=== PATIENT | male | born 1950 | race Caucasian/White ===

== ENCOUNTER → 2016-10-20 | Outpatient (CLI) | payer OTHER, MEDICARE | LOC: BHLMT 14:45 | PROVIDERS: ATTEND Internal Medicine Cardiovascular Disease | DX: I48.91 Unspecified atrial fibrillation (principal) | CPT/HCPCS: 93306-PO ==

== ENCOUNTER → 2016-10-26 | Outpatient (CLI) | payer OTHER, MEDICARE | LOC: BHLMT 14:00 | PROVIDERS: ATTEND Internal Medicine Cardiovascular Disease | DX: R06.02 Shortness of breath (principal) | CPT/HCPCS: 78452; 93017; A9500; J2785 ==

== ENCOUNTER → 2016-10-27 | Outpatient (CLI) | payer OTHER, MEDICARE ==
[~2016-10-27] MED LIST: IOPAMIDOL (ISOVUE 370) 100 ML BTL IV ONE
== END ==
LOC: FIMAGING 14:42
PROVIDERS: ATTEND Internal Medicine
DX: I72.9 Aneurysm of unspecified site (principal); I71.01 Dissection of thoracic aorta
CPT/HCPCS: 71275; 74175; Q9967

== ENCOUNTER → 2016-10-28 | Outpatient (CLI) | payer OTHER, MEDICARE | LOC: FIMAGING 17:01 | PROVIDERS: ATTEND Internal Medicine | DX: I71.4 Abdominal aortic aneurysm, without rupture (principal); Z98.890 Other specified postprocedural states ==

== ENCOUNTER 2016-11-27 18:48 | Inpatient (IN) | payer OTHER, MEDICARE ==
--- NOTE | 2016-11-27 18:58 | CPEKG ---
Heart Rate: 93 RR Interval: 645 QRSD Interval: 102 QT Interval: 368 QTC Interval: 458 QRS [place]: 90 T Wave [place]: -36 EKG Severity - ABNORMAL ECG - EKG Impression: ATRIAL FIBRILLATION, V-RATE 77-110 EKG Impression: BORDERLINE RIGHT AXIS DEVIATION Electronically Signed By: Trey Badillo 27-Nov-2016 20:11:23
[2016-11-27] MEDS ORDERED: ALBUTEROL 3 ML DEYVIAL IH ONE ×2 (19:22→20:13)
[2016-11-27] MEDS ORDERED: IPRATROPIUM/ALBUTEROL 3 ML DEYVIAL ONE (19:22)
[2016-11-27] MEDS ORDERED: methylPREDNISolone SOD SUCC 125 MG/2 ML VIAL IVP ONE (19:22)
[2016-11-27] MEDS ORDERED: NS 1,000 ML IV ONE (19:22)
[2016-11-27] MEDS ORDERED: IPRATROPIUM/ALBUTEROL 3 ML DEYVIAL IH ONE (19:22)
[2016-11-27] MEDS ORDERED: MAGNESIUM SULF 2 GM/WATER 50 ML IV ONE (19:22)
--- NOTE | 2016-11-27 19:25 | EDPHY ---
H & P Time Seen by Provider: 11/27/16 19:13 HPI/ROS: CHIEF COMPLAINT: The short of breath and trouble breathing HISTORY OF PRESENT ILLNESS: 66-year-old man has had asthma for 30 or 35 years. He ran out of his Flovent 2 days ago and developed a cold a cough productive of thick yellow sputum. Presents with worsening shortness of breath identical to multiple previous episodes of asthma is worse with any exertion. Better sitting up. Worse lying down. Not associated with chest pain or fever. No hemoptysis or leg swelling. Symptoms severe. REVIEW OF SYSTEMS: Eye: no change in vision ENT: no sore throat Cardiac: no chest pain or syncope Pulmonary: HPI Abdomen: no vomiting, diarrhea, abdominal pain Musculoskeletal: no back pain Skin: no rash Neuro: no headache Constitutional: no fever : no urinary symptoms A comprehensive 10 point review of systems is otherwise negative aside from elements mentioned in the history of present illness. PAST MEDICAL HISTORY: Aortic dissection repair, asthma, hypertension, atrial fibrillation. Social history: Nonsmoker General Appearance: Alert and conversant, cooperative. Eyes: No scleral icterus. ENT, Mouth: Normal mucous membranes. No angioedema. Respiratory: Decreased breath sounds bilaterally, tachypneic, increased work of breathing. Does have retractions. Cardiovascular: Irregular rate. No murmur. Gastrointestinal: Abdomen is soft and non tender. Neurological: Alert and oriented x3. Normally conversant. Face symmetric, normal movement and sensation in all extremities. Skin: Warm and dry, no rashes. Musculoskeletal: No peripheral edema and no joint swelling. No calf tenderness. Psychiatric: Not agitated. Emergency Department course/MDM: Typical asthma exacerbation with tachycardia and hypoxia with room air saturation 84%. Low suspicion for ischemic cardiac disease or pulmonary embolism. DuoNeb, albuterol, methylprednisolone 125 mg IV, magnesium 2 g IV, one view chest x-ray. Patient declined two view because of concern about radiation cumulative dose. 2100: Patient's breathing is improved, I do hear wheezing now. He really had a silent chest initially. Plan for admission to hospital for continued IV steroids and nebulizer treatments, supplemental oxygen. Smoking Status: Never smoked Constitutional: Initial Vital Signs Temperature (C) 36.1 C 11/27/16 18:48 Heart Rate 112 H 11/27/16 18:48 Respiratory Rate 24 H 11/27/16 18:48 Blood Pressure 126/103 H 11/27/16 18:48 O2 Sat (%) 84 L 11/27/16 18:48 O2 Delivery Mode Nasal Cannula O2 (L/minute) 2 Allergies/Adverse Reactions: No Known Allergies Allergy (Unverified 11/27/16 18:57) Home Medications: Medication Instructions Recorded Albuterol [Proventil Inhaler HFA 1 - 2 puffs IH Q4H PRN 11/27/16 (*)] Amlodipine Besylate [Norvasc] 5 mg PO DAILY 11/27/16 Fluticasone Hfa 220 Mcg [Flovent 2 puffs IH BID 11/27/16 220 MCG Hfa MDI (*)] Hydrochlorothiazide [HCTZ (*)] 25 mg PO DAILY 11/27/16 Labetalol HCl [Trandate 200 mg (*)] 400 mg PO BID 11/27/16 Losartan Potassium 100 mg PO DAILY 11/27/16 Medical Decision Making - Diagnostics EKG Interpretation: 12-lead EKG interpreted by me; official reading is in trace master. My interpretation is atrial fibrillation rate 93 with PVC. Imaging Results: Imaging Impressions Chest X-Ray 11/27/16 19:22 Impression: Stable negative chest. Imaging: I viewed and interpreted images myself Differential Diagnosis: Differential diagnosis considered for shortness of breath including but not limited to pulmonary infectious process, COPD, asthma, pulmonary embolus and congestive heart failure. Consult/Admit Bed Type: [facility] 2020 Critical Care Time: Critical care time spent by me, Dr. Badillo, exclusively with the care of this patient was 30 minutes, exclusive of PA or SPA EXPERIENCE COORDINATOR time and exclusive of separate procedures. The organ system at risk was pulmonary and I ordered IV steroids, multiple nebulizer treatments, diagnostic studies, IV magnesium, consultation with hospitalist and supplemental oxygen; to stabilize the patient and prevent worsening of the patient's condition. - Data Points Laboratory Results: Laboratory Results 11/27/16 18:58 11/27/16 18:58 11/27/16 11/27/16 18:58 18:58 WBC 8.16 10^3/uL 10^3/uL (3.80-9.50) RBC 5.38 10^6/uL 10^6/uL (4.40-6.38) Hgb 16.5 g/dL g/dL (13.7-17.5) Hct 48.1 % % (40.0-51.0) MCV 89.4 fL fL (81.5-99.8) MCH 30.7 pg pg (27.9-34.1) MCHC 34.3 g/dL g/dL (32.4-36.7) RDW 13.2 % % (11.5-15.2) Plt Count 294 10^3/uL 10^3/uL (150-400) MPV 9.1 fL fL (8.7-11.7) Neut % (Auto) 76.6 % H % (39.3-74.2) Lymph % (Auto) 9.3 % L % (15.0-45.0) [place] % (Auto) 12.3 % % (4.5-13.0) Eos % (Auto) 1.1 % % (0.6-7.6) Baso % (Auto) 0.5 % % (0.3-1.7) Nucleat RBC Rel Count 0.0 % % (0.0-0.2) Absolute Neuts (auto) 6.25 10^3/uL 10^3/uL (1.70-6.50) Absolute Lymphs (auto) 0.76 10^3/uL L 10^3/uL (1.00-3.00) Absolute Monos (auto) 1.00 10^3/uL H 10^3/uL (0.30-0.80) Absolute Eos (auto) 0.09 10^3/uL 10^3/uL (0.03-0.40) Absolute Basos (auto) 0.04 10^3/uL 10^3/uL (0.02-0.10) Absolute Nucleated RBC 0.00 10^3/uL 10^3/uL (0-0.01) Immature Gran % 0.2 % % (0.0-1.1) Immature Gran # 0.02 10^3/uL 10^3/uL (0.00-0.10) Sodium 140 mEq/L mEq/L (134-144) Potassium 3.6 mEq/L mEq/L (3.5-5.2) Chloride 98 mEq/L mEq/L (97-110) Carbon Dioxide 28 mEq/l mEq/l (22-31) Anion Gap 14 mEq/L mEq/L (8-16) BUN 19 mg/dL mg/dL (7-23) Creatinine 0.8 mg/dL mg/dL (0.7-1.3) Estimated GFR > 60 Glucose 106 mg/dL H mg/dL (70-100) Calcium 10.3 mg/dL mg/dL (8.5-10.4) Medications Given: Discontinued Medications Albuterol (Proventil Neb) 3 ml IH EDNOW ONE Stop: 11/27/16 19:23 Last Admin: 11/27/16 19:44 Dose: 3 ml Albuterol (Proventil Neb) 3 ml IH EDNOW ONE Stop: 11/27/16 20:14 Last Admin: 11/27/16 20:45 Dose: 3 ml Albuterol/Ipratropium (Duoneb) 3 ml IH EDNOW ONE Stop: 11/27/16 19:23 Last Admin: 11/27/16 19:28 Dose: 3 ml Sodium Chloride (Ns) 1,000 mls @ 0 mls/hr IV ONCE ONE; Wide Open PRN Reason: Protocol Stop: 11/27/16 19:23 Last Admin: 11/27/16 19:45 Dose: 1,000 mls Magnesium Sulfate (Magnesium Sulf 2 Gm (Premix)) 50 mls @ 50 mls/hr IV EDNOW ONE Stop: 11/27/16 20:21 Last Admin: 11/27/16 19:44 Dose: 50 mls Methylprednisolone Sodium Succinate (Solu-Medrol) 125 mg IVP EDNOW ONE Stop: 11/27/16 19:23 Last Admin: 11/27/16 19:45 Dose: 125 mg Departure - Departure Disposition: [facility] Inpatient Acute Clinical Impression: Exacerbation of asthma Condition: Fair
[2016-11-27 19:26] LABS: % IMMATURE GRANULYOCYTES 0.2 % (0.0-1.1); ABSOLUTE IMMATURE GRANULOCYTES 0.02 10^3/uL (0.00-0.10); ADD DIFF? NO; ADD MORPH? NO; ADD SCAN? NO; ATYPICAL LYMPHOCYTE FLAG 20 (0-99); FRAGMENT RBC FLAG 0 (0-99); HEMATOCRIT 48.1 % (40.0-51.0); HEMOGLOBIN 16.5 g/dL (13.7-17.5); LEFT SHIFT FLG 0 (0-99); LIPEMIA HEMOLYSIS FLAG 90 (0-99); MEAN CELL HEMOGLOBIN 30.7 pg (27.9-34.1); MEAN CELL HEMOGLOBIN CONCENTR. 34.3 g/dL (32.4-36.7); MEAN CELL VOLUME 89.4 fL (81.5-99.8); MEAN PLATELET VOLUME 9.1 fL (8.7-11.7); PLATELET CLUMPS FLAG 0 (0-99); PLATELET COUNT 294 10^3/uL (150-400); RED BLOOD CELL COUNT 5.38 10^6/uL (4.40-6.38); RED CELL DISTRIBUTION WIDTH 13.2 % (11.5-15.2)
[2016-11-27] MEDS ORDERED: MAGNESIUM SULF 2 GM/WATER 50 ML BAG IV ONE (19:30)
[2016-11-27 19:38] LABS: ANION GAP 14 mEq/L (8-16); CALCIUM 10.3 mg/dL (8.5-10.4); CARBON DIOXIDE 28 mEq/l (22-31); CHLORIDE 98 mEq/L (97-110); CREATININE 0.8 mg/dL (0.7-1.3); GLOMERULAR FILTRATION RATE > 60; GLUCOSE 106 mg/dL (70-100); POTASSIUM 3.6 mEq/L (3.5-5.2); SODIUM 140 mEq/L (134-144)
[2016-11-27] MEDS ORDERED: ACETAMINOPHEN 325 MG TAB PO PRN (21:03)
[2016-11-27] MEDS ORDERED: ONDANSETRON 4 MG/2 ML VIAL IVP PRN (21:03)
--- NOTE | 2016-11-27 21:34 | GHP ---
[f rep st] HISTORY AND PHYSICAL DATE OF ADMISSION: 11/27/2016 CHIEF COMPLAINT: Cannot breathe. HPI: This is a 66-year-old male with history of asthma, who presented to the emergency department t liborio unable to breathe. He developed what he described as "cold" symptoms 2 days ago. The night before last he was not able to sleep due to shortness of breath, wheezing and coughing. He has been using his albuterol with l ittle relief. He did run out of his Flovent a few days ago. For the past 24 hours, his shortness o f breath has worsened. He has felt flushed but has had no fevers. He also had a bout of diarrhea t liborio. In the emergency department, he was noted to have a room air oxygen saturation of 84%. PAST MEDICAL HISTORY: 1. Asthma. 2. Aortic dissection. 3. Hypertension. 4. Atrial fibrillation. PAST SURGICAL HISTORY: Aortic dissection repair. HOME MEDICATIONS: Reviewed. Refer to [employer] for details. ALLERGIES: No known drug allergies. SOCIAL HISTORY: He lives in [place]. He denies any tobacco, alcohol, or illicit drug use. FAMILY HISTORY: Reviewed and noncontributory. REVIEW OF SYSTEMS: Comprehensive 10-point Review of Systems was done and was negative, except for a s mentioned in the HPI. PHYSICAL EXAM: VITAL SIGNS: Blood pressure 130/89, pulse of 87, respiratory rate 22, O2 sat 97% on 2 L and 84% on room air, temperature afebrile. GENERAL: No acute distress. HEART: S1, S2. LUNG S: Clear but are very tight with some wheezing. There are no rhonchi. There is decreased air move ment. There is slight increased respiratory effort with no accessory muscle use. ABDOMEN: Soft, n ontender, nondistended. No guarding or rebound tenderness. Normoactive bowel sounds. EXTREMITIES: No clubbing or cyanosis. NEURO: Cranial nerves 2-12 grossly intact. No focal motor or sensory d eficits. SKIN: Clear, no rashes. DIAGNOSTICS: WBC is 8.16, hemoglobin 16.5, hematocrit 48.1, platelets 294. Sodium 140, potassium 3 .6, chloride 98, BUN 19, creatinine 0.8, glucose 106. Chest x-ray, which I visualized and personall y interpreted, shows clear lungs. Calcified granuloma right lower lobe. No obvious pneumonia. EKG , which I visualized and personally interpreted, shows atrial fibrillation, rate 93 beats per minute with multiple PVCs. ASSESSMENT AND PLAN: This is a 66-year-old male with history of asthma and chronic atrial fibrillat ion, presenting with: 1. Acute respiratory failure due to asthma exacerbation. Plan: The patient will be placed on obse rvation where we will continue prednisone. We will defer starting antibiotics at this time given th e lack of clear evidence for acute bacterial infection. We will continue with albuterol treatments as well. 2. History of hypertension. Plan: Will continue home medications as indicated. 3. Chronic atrial fibrillation not on anticoagulation. Plan: Recommend outpatient followup with c ardiologists. We will defer starting anticoagulation at this time but it is something that should b e considered in the near future given his CHADSVASC score of 2. 4. Once again, the patient will be placed on observation. He may be eligible for discharge in the morning if his oxygen saturations are improving. Otherwise, he may need to be discharged on supplem ental oxygen and steroids. /[id number]/MODL
[2016-11-27] MEDS ORDERED: PNEUMOC 13-VAL CONJ-DIP CRM/PF 0.5 ML SYR IM ONE (23:35)
[2016-11-28] MEDS: CEPACOL LOZENGE PO PRN ×2 (05:34→20:36)
--- NOTE | 2016-11-28 08:57 | HOSPPROG ---
Hospitalist Progress Note Assessment/Plan: Patient is a 66 y/o male with hx of asthma who presented to the ER with inability to breathe. Today is my first encounter with the patient, chart reviewed. *Asthma exacerbation on steroids, prn albuteral start Singulair Check a peak flow. Recommending that the patient do this in addition at home to monitor his lung status * upper respiratory infection Suspect this is likely viral but has been sick for several days with coughing and feeling poorly Will start him with treatment on azithromycin *acute respiratory failure due to the above Continues to need 3-4 L of oxygen *HTN: bp 150/91 *afib w rvr heart rate is elevated not on OAC CHADSVASC score of 2 had a recent w/u with cardiology resumed Labetalol * history of aortic dissection Had surgery 7 years ago * cannabis use He smokes cannabis daily Recommending stopping any type of smoking in the setting of asthma * plan. Patient will require another midnight stay. He continues to be tachypneic and requiring too much oxygen for discharge at this time. This will make him inpatient status. Subjective: David feels slightly better than when he was admitted. Continues to be very short of breath. Objective: Vital Signs Temp Pulse Resp BP Pulse Ox 37.0 C 96 17 150/91 H 97 11/28/16 08:01 11/28/16 08:01 11/28/16 08:01 11/28/16 08:01 11/28/16 08:01 11/27/16 11/28/16 11/29/16 05:59 05:59 05:59 Intake Total 1750 Balance 1750 - Physical Exam Constitutional: appears nourished, not in pain Eyes: PERRL Ears, Nose, Mouth, Throat: hearing normal Cardiovascular: regular rate and rhythym, tachycardia Respiratory: reduced air movement (Bibasilar), expiratory wheeze, No no respiratory distress (Mild) Gastrointestinal: normoactive bowel sounds Skin: warm Musculoskeletal: full muscle strength Neurologic: AAOx3 Psychiatric: interacting appropriately, not anxious ICD10 Worksheet Patient Problems: Problems Problem Status Onset Exacerbation of asthma Acute
[2016-11-28] MEDS: amLODIPine BESYLATE 5 MG TAB PO SCH (09:15)
[2016-11-28] MEDS: LABETALOL HCL 200 MG TAB PO SCH ×2 (09:15→20:23)
[2016-11-28] MEDS: predniSONE 20 MG TAB PO SCH (09:16)
[2016-11-28] MEDS: HYDROCHLOROTHIAZIDE 25 MG TAB PO SCH (09:16)
[2016-11-28] MEDS: LOSARTAN POTASSIUM 50 MG TAB PO SCH (09:17)
[2016-11-28] MEDS: FLUTICASONE HFA 220 MCG MDI IH SCH ×4 (11:29→21:10)
[2016-11-28] MEDS: AZITHROMYCIN 250 MG TAB PO SCH (12:05)
[2016-11-28] MEDS ORDERED: PNEUMOC 13-VAL CONJ-DIP CRM/PF 0.5 ML SYR IM ONE (12:30)
[2016-11-28] MEDS: ALBUTEROL 3 ML DEYVIAL IH PRN ×2 (13:41→17:37)
[2016-11-28] MEDS: MONTELUKAST SODIUM 10 MG TAB PO SCH (18:12)
[2016-11-28] MEDS ORDERED: methylPREDNISolone SOD SUCC 125 MG/2 ML VIAL IVP ONE (18:24)
[2016-11-28] MEDS ORDERED: IPRATROPIUM/ALBUTEROL 3 ML DEYVIAL ONE (21:07)
[2016-11-28] MEDS: IPRATROPIUM/ALBUTEROL 3 ML DEYVIAL IH SCH (21:10)
[2016-11-29] MEDS: ALBUTEROL 3 ML DEYVIAL IH PRN ×2 (01:02→14:47)
[2016-11-29] MEDS ORDERED: IPRATROPIUM/ALBUTEROL 3 ML DEYVIAL ONE (05:10)
[2016-11-29] MEDS: IPRATROPIUM/ALBUTEROL 3 ML DEYVIAL IH SCH ×4 (05:18→22:01)
[2016-11-29] MEDS: AZITHROMYCIN 250 MG TAB PO SCH (09:03)
[2016-11-29] MEDS: predniSONE 20 MG TAB PO SCH (09:03)
[2016-11-29] MEDS: amLODIPine BESYLATE 5 MG TAB PO SCH (09:11)
[2016-11-29] MEDS: LOSARTAN POTASSIUM 50 MG TAB PO SCH (09:12)
[2016-11-29] MEDS: HYDROCHLOROTHIAZIDE 25 MG TAB PO SCH ×2 (09:12→15:26)
[2016-11-29] MEDS: LABETALOL HCL 200 MG TAB PO SCH (09:13)
[2016-11-29] MEDS: FLUTICASONE HFA 220 MCG MDI IH SCH (09:32)
[2016-11-29] MEDS ORDERED: MAGNESIUM SULF 1 GM/DEXTROSE 100 ML IV ONE (10:46)
--- NOTE | 2016-11-29 10:52 | HOSPPROG ---
Hospitalist Progress Note Assessment/Plan: Patient is a 66 y/o male with hx of asthma who presented to the ER with inability to breathe. *Asthma exacerbation on steroids, prn albuteral start Singulair increase WOB/ trial of mag x 1 iV pulmonology to see Did very poorly with Peak/flow yesterday will hold Labetalol for now * upper respiratory infection Suspect this is likely viral but has been sick for several days with coughing and feeling poorly Will start him with treatment on azithromycin *acute respiratory failure due to the above on less O2 today, but looks worse *HTN: bp 131/70 *afib w rvr not on OAC CHADSVASC score of 2 had a recent w/u with cardiology * history of aortic dissection Had surgery 7 years ago * cannabis use He smokes cannabis daily Recommending stopping any type of smoking in the setting of asthma * plan. patient is tachypneic during my evaluation/ will need another midnight stay. Appreciate Dr Yanes seeing hi. Subjective: David said he was feeling better this morning/ now feels worse. Feels more short of breath. Objective: Vital Signs Temp Pulse Resp BP Pulse Ox 36.4 C 99 14 131/70 H 94 11/29/16 08:00 11/29/16 08:00 11/29/16 08:00 11/29/16 09:10 11/29/16 08:00 11/28/16 11/29/16 11/30/16 05:59 05:59 05:59 Intake Total 800 Balance 800 - Physical Exam Constitutional: chronically ill appearing, uncomfortable Eyes: PERRL Ears, Nose, Mouth, Throat: hearing normal Respiratory: reduced air movement (poor breath sounds mid lobes down), No no respiratory distress (mild/ increase wob with any talking) Gastrointestinal: normoactive bowel sounds Skin: warm Musculoskeletal: full muscle strength Neurologic: AAOx3 Psychiatric: interacting appropriately ICD10 Worksheet Patient Problems: Problems Problem Status Onset Exacerbation of asthma Acute
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
[2016-11-29] MEDS: TIOTROPIUM INHALER 18 MCG/DOSE 5 DOSE/MDI IH SCH (18:05)
[2016-11-29] MEDS: MONTELUKAST SODIUM 10 MG TAB PO SCH (18:38)
[2016-11-29] MEDS ORDERED: METOPROLOL TARTRATE 100 MG TAB PO SCH (21:00)
[2016-11-29] MEDS ORDERED: LABETALOL HCL 100 MG TAB PO ONE (21:25)
[2016-11-29] MEDS: FLUTICASONE/SALMETER 500/50MCG DISKUS IH SCH (22:02)
[2016-11-30] MEDS: IPRATROPIUM/ALBUTEROL 3 ML DEYVIAL IH SCH ×3 (05:38→17:21)
[2016-11-30] MEDS ORDERED: ATENOLOL 100 MG TAB PO SCH (09:00)
[2016-11-30] MEDS: AZITHROMYCIN 250 MG TAB PO SCH (10:20)
[2016-11-30] MEDS: HYDROCHLOROTHIAZIDE 25 MG TAB PO SCH (10:20)
[2016-11-30] MEDS: predniSONE 20 MG TAB PO SCH (10:21)
[2016-11-30] MEDS: LOSARTAN POTASSIUM 50 MG TAB PO SCH (10:21)
[2016-11-30] MEDS: amLODIPine BESYLATE 5 MG TAB PO SCH (10:21)
[2016-11-30] MEDS: TIOTROPIUM INHALER 18 MCG/DOSE 5 DOSE/MDI IH SCH (11:15)
[2016-11-30] MEDS: FLUTICASONE/SALMETER 500/50MCG DISKUS IH SCH (11:34)
--- NOTE | 2016-11-30 14:25 | PDINTPN ---
Traffic Director Progress Note Assessment/Plan: Assessment: Asthma: Symptoms and oxygen needs improved, not back to baseline. He's anxious to go home. Possible ALVARO HTN: Plan: I discussed the rationale for changing labetalol to metoprolol, and he agrees. Continue Advair, Spiriva, albuterol nebs/MDI, and montelukast for now. Will need a prednisone taper (about 1 week) and oxygen. I'll get oximetry and/ or a sleep study to evaluate for ALVARO as an outpatient. Stop smoking sally 11/30/16 14:27 Subjective: Feels breathing is better, able to take deeper breaths. No cough. Objective: Vital Signs Temp Pulse Resp BP Pulse Ox 36.7 C 98 18 112/80 104 H 11/30/16 11:26 11/30/16 11:41 11/30/16 11:41 11/30/16 11:26 11/30/16 11:41 11/29/16 11/30/16 12/01/16 05:59 05:59 05:59 Intake Total 800 Balance 800 Physical Exam - Physical Exam General Appearance: alert, no apparent distress EENT: normal ENT inspection Neck: normal inspection Respiratory: wheezing (anteriorly) Cardiac/Chest: regular rate, rhythm, No edema Abdomen: normal bowel sounds, non-tender Skin: normal color, warm/dry Extremities: normal inspection Neuro/Psych: alert, normal mood/affect, oriented x 3 ICD10 Worksheet Patient Problems: Problems Problem Status Onset Exacerbation of asthma Acute
[2016-11-30 15:31] VITALS: BP 134/87; TEMP 98
[2016-11-30 17:40] VITALS: PULSE 104; RESP 20; O2SAT 86
--- NOTE | 2016-12-01 03:10 | GDS ---
[f rep st] DISCHARGE SUMMARY DISCHARGE DIAGNOSES: 1. Acute asthma exacerbation. 2. Upper respiratory infection. 3. Acute respiratory failure. 4. Hypertension. 5. History of atrial fibrillation with rapid ventricular response. 6. Continued daily cannabis use. CONSULTATIONS: Dr. Bey of Pulmonology. PHYSICAL EXAMINATION: GENERAL: The patient is alert. VITAL SIGNS: Afebrile at 36.7, pulse is 98, respiratory rate 16, blood pressure is 134/87. He is saturating 92% on 3 L. I have seen and evalu ated the patient on the day of discharge. HOSPITAL COURSE: The patient is a 66-year-old male, who presented to the emergency room with compla ints of shortness of breath. He was evaluated and diagnosed with: 1. Acute asthma exacerbation. During this hospitalization, he was treated with steroids, as well a s albuterol. He did receive a pulmonology consultation with medication adjustments made. His condi tion is significantly improved, however, not 100% resolved. He will follow up with Dr. Bey in the outpatient setting. 2. Upper respiratory infection. He has been treated with azithromycin and will continue this at th e time of disposition. A prescription has been provided. 3. Acute respiratory failure. The patient has been provided home oxygen therapy secondary to the f act that he has had an acute asthma exacerbation. He is saturating less than 88% on room air and wi ll require supplemental oxygenation. 4. Hypertension. This is stable. 5. History of atrial fibrillation with RVR. It was noted that during this hospital course the shane ent's labetalol has been discontinued and has been transitioned to Lopressor, and patient is underst anding of this change. 6. Daily cannabis use. It has been recommended the patient discontinue his daily smoking. DISPOSITION: The patient will be discharged home independently with home oxygen therapy. DISCHARGE INSTRUCTIONS: Followup will be with his primary care physician, as well as Dr. Bey of p ulmonology in 2 weeks. There are no pending studies. I have discussed the patient's disposition wi th Dr. Bey, who is in agreement with this plan. Home oxygen has been ordered for the patient. DISCHARGE MEDICATIONS: Please refer to EMR form. I have provided the patient a prescription for az ithromycin, Lopressor, Spiriva. Discontinued medications include labetalol and Flovent. /[id number]/MODL
== END 2016-11-30 18:38 | disposition home or self-care (01) | DRG 202 ==
LOC: F3N 21:50 → OBSVTOIN 11-28 10:40 → F3E 11-29 15:43
PROVIDERS: ADMIT Family Medicine; ATTEND Family Medicine
DX: J45.901 Unspecified asthma with (acute) exacerbation (principal); J96.00 Acute respiratory failure, unspecified whether with hypoxia or hypercapnia; J06.9 Acute upper respiratory infection, unspecified; I10 Essential (primary) hypertension; F12.90 Cannabis use, unspecified, uncomplicated; I48.2 Chronic atrial fibrillation; E66.9 Obesity, unspecified
CPT/HCPCS: 96365; G0009; G0378; J3475

== ENCOUNTER → 2017-05-23 | Outpatient (CLI) | payer OTHER, MEDICARE | LOC: FIMAGING 09:19 | PROVIDERS: ATTEND Urology | DX: N50.3 Cyst of epididymis (principal); N43.3 Hydrocele, unspecified ==

== ENCOUNTER → 2017-07-03 | Outpatient (CLI) | payer OTHER, MEDICARE | LOC: BMCIMAGING 13:53 → EDSTATUS 13:55 | PROVIDERS: ATTEND Internal Medicine | DX: J84.10 Pulmonary fibrosis, unspecified (principal); J98.11 Atelectasis ==

== ENCOUNTER → 2018-03-15 | Outpatient (CLI) | payer OTHER, MEDICARE | LOC: FIMAGING 15:52 | PROVIDERS: ATTEND Internal Medicine | DX: M79.662 Pain in left lower leg (principal) ==

== ENCOUNTER → 2018-07-04 | Outpatient (CLI) | payer OTHER, MEDICARE | LOC: FIMAGING 12:22 ==

== ENCOUNTER → 2018-07-04 | Outpatient (CLI) | payer OTHER, MEDICARE | LOC: FIMAGING 12:13 | PROVIDERS: ATTEND Internal Medicine Interventional Cardiology | DX: I71.01 Dissection of thoracic aorta (principal); I71.2 Thoracic aortic aneurysm, without rupture; K57.30 Diverticulosis of large intestine without perforation or abscess without bleeding | CPT/HCPCS: C8902; C8909; C8918; 82565-PO ==

== ENCOUNTER → 2018-08-16 | Outpatient (CLI) | payer OTHER, MEDICARE | LOC: BMCIMAGING 14:27 | PROVIDERS: ATTEND Family Medicine | DX: R91.8 Other nonspecific abnormal finding of lung field (principal); R05 Cough ==